=== PATIENT | female | born 1950 | race Caucasian/White ===

== ENCOUNTER 2022-01-10 16:30 | Emergency (ER) | payer OTHER ==
[~2022-01-10 16:30] MED LIST: MEDROL 4MG DOSEP4 MG PO; NORCO 5-325 TA1 EACH PO
[2022-01-10] MEDS ORDERED: NORCO 5-325 TA1 EACH PO (18:08)
== END 2022-01-10 19:32 | disposition home or self-care (01) ==
LOC: FER 16:30
DX: S82.141A Displaced bicondylar fracture of right tibia, initial encounter for closed fracture (principal); I10 Essential (primary) hypertension; E11.9 Type 2 diabetes mellitus without complications; W19.XXXA Unspecified fall, initial encounter; Y92.009 Unspecified place in unspecified non-institutional (private) residence as the place of occurrence of the external cause
CPT/HCPCS: 73200; 73564; 73700